=== PATIENT | male | born 1995 | race Native Hawaiian/Other Pacific Islander ===

== ENCOUNTER 2017-07-17 15:58 | Emergency (ER) | payer OTHER ==
[2017-07-17 16:08] VITALS: RESP 19; TEMP 98.2; O2SAT 98
[2017-07-17] MEDS ORDERED: Lidocaine 1% Inj (20ml) IJ STA (16:15)
--- NOTE | 2017-07-17 16:18 | ED PDOC ---
HPI: Wound Care - HPI Time Seen by Provider: 07/17/17 16:10 Chief Complaint (Nursing): Abnormal Skin Integrity Chief Complaint (Provider): right thumb laceration History Per: Patient Additional Complaint(s): 21 year old left hand dominant male presents with flap laceration to right thumb sustained earlier today with a doctor osteopathic. Patient went to urgent care and was told to come to ED as they could do the repair at urgent care. Tetanus booster was given at urgent care. Patient denies any numbness or tingling to affected area. PMD: none Past Medical History Reviewed: Historical Data, Nursing Documentation, Vital Signs Vital Signs: Last Vital Signs Temp 98.2 F 07/17/17 16:04 Pulse 113 H 07/17/17 16:04 Resp 19 07/17/17 16:04 BP 157/80 H 07/17/17 16:04 Pulse Ox 98 07/17/17 16:04 - Medical History PMH: No Chronic Diseases - Family History Family History: States: No Known Family Hx - Living Arrangements Living Arrangements: With Friends/Others - Social History Current smoker - smoking cessation education provided: No Alcohol: None Drugs: Denies - Immunization History Hx Tetanus Toxoid Vaccination: Yes - Home Medications Home Medications: Ambulatory Orders Medication Instructions Recorded Amoxicillin/Clavulanate [Augmentin 1 tab PO BID #14 tab 07/17/17 875 MG-125 MG] traMADol [Ultram] 50 mg PO TID PRN #15 tab 07/17/17 - Allergies Allergies/Adverse Reactions: Allergies Allergy/AdvReac Type Severity Reaction Status Date / Time aspirin Allergy RASH Verified 07/17/17 16:03 ibuprofen [From Advil] Allergy RASH Verified 07/17/17 16:03 Review of Systems ROS Statement: Except As Marked, All Systems Reviewed And Found Negative Musculoskeletal: Positive for: Other (right thumb laceration) Physical Exam - Reviewed Nursing Documentation Reviewed: Yes Vital Signs Reviewed: Yes - Physical Exam Appears: Positive for: Well, Non-toxic, No Acute Distress Skin: Negative for: Rash Eye Exam: Positive for: Normal appearance Cardiovascular/Chest: Positive for: Regular Rate, Rhythm Respiratory: Positive for: Normal Breath Sounds Extremity: Positive for: Other (4 cm U shaped flap laceration noted to dorsal aspect of right thumb. Full rom of digit, normal distal sensation, no active bleeding) Neurologic/Psych: Positive for: Alert, Oriented - ECG O2 Sat by Pulse Oximetry: 98 Pulse Ox Interpretation: Normal Procedure: Wound Repair - Time Performed Time Performed: 16:18 - Time Out Time Out: Side verified, Site verified, Patient ID confirmed - Procedure Procedure: Wound Repair: right thumb flap laceration - Consent Obtained Consent obtained: Verbal - Performed by Performed by: Mid-level Provider - Indications Indication(s):: Laceration - Location Location:: Right Finger:: Thumb Shape:: Other (U shaped flap) Dimensions Length cm: 4 - Anesthetic Technique Local/Regional Anesthetic:: Lidocaine 1% (digital block right humb) - Debris Debris:: None - Irrigated Irrigated with ml of normal saline: 50 - Complexity Complexity:: Simple (one layer) - Wound repair method Sutures:: # (15), Size (5-0), Type (nylon), Technique (interrupted) - Muscle repiar layer closed with Muscle repair layer closed with:: Wound well approximated, Dressing applied, Tetanus up to date - Complications Complications: none - Patient tolerated procedure Patient Tolerated Procedure:: Well Medical Decision Making Medical Decision Makin21 year old with right thumb laceration Plan: Lac repair Please see procedure note. Flap was realigned however patient made aware that flap may not be viable even after repair. Patient given detailed wound care instructions. Prescriptions given for Augmentin and tramadol. Disposition - Clinical Impression Clinical Impression: Finger laceration - Patient ED Disposition Is Patient to be Admitted: No Counseled Patient/Family Regarding: Diagnosis, Need For Followup, Rx Given - Disposition Referrals: Sunny Silver MD [Medical Doctor] - Disposition: Routine/Home Disposition Time: 17:10 Condition: STABLE Additional Instructions: Wash wound daily with soap and water. Apply thin film of Neosporin once a day only and keep wound covered. Rest the affected areas as much as possible. Take antibiotics as directed. Take regular Tylenol for mild pain, take prescription pain medication for more severe pain. Wound check 2-3 days. Suture removal 14 days. Follow up with hand specialist. Prescriptions: Amoxicillin/Clavulanate [Augmentin 875 MG-125 MG] 1 tab PO BID #14 tab traMADol [Ultram] 50 mg PO TID PRN #15 tab PRN Reason: Pain, Moderate (4-7) Instructions: Laceration Repair With Stitches (DC) Forms: [employer] (Amharic)
--- NOTE | 2017-07-17 16:25 | ED PDOC ---
Upper Extremity Pain/Injury Time Seen by Provider: 07/17/17 16:10 Chief Complaint (Nursing): Abnormal Skin Integrity Chief Complaint (Provider): Right thumb laceration History Per: Patient History/Exam Limitations: no limitations Onset/Duration Of Symptoms: Hrs Current Symptoms Are (Timing): Still Present Quality: "Pain" Past Medical History Reviewed: Historical Data, Nursing Documentation, Vital Signs Vital Signs: Last Vital Signs Temp 98.2 F 07/17/17 16:04 Pulse 113 H 07/17/17 16:04 Resp 19 07/17/17 16:04 BP 157/80 H 07/17/17 16:04 Pulse Ox 98 07/17/17 16:04 - Allergies Allergies/Adverse Reactions: Allergies Allergy/AdvReac Type Severity Reaction Status Date / Time aspirin Allergy RASH Verified 07/17/17 16:03 ibuprofen [From Advil] Allergy RASH Verified 07/17/17 16:03 - ECG O2 Sat by Pulse Oximetry: 98 (RA) Pulse Ox Interpretation: Normal Medical Decision Making Medical Decision Making: Initial Impression: Right thumb laceration\\ Initial Plan: --Reevaluation Scribe Attestation: Documented by Dre Aranda, acting as a scribe for Sarahi Alonso PA-C Provider Scribe Attestation: All medical record entries made by the Scribe were at my direction and personally dictated by me. I have reviewed the chart and agree that the record accurately reflects my personal performance of the history, physical exam, medical decision making, and the department course for this patient. I have also personally directed, reviewed, and agree with the discharge instructions and disposition. Disposition - Disposition Referrals: Provider CHAD, [Primary Care Provider] -
[2017-07-17] MEDS ORDERED: Amoxicillin-Clav 875-125 mg Tab PO STA (17:11)
[2017-07-17 17:30] VITALS: BP 134/76; PULSE 87
== END 2017-07-17 17:29 | disposition home or self-care (01) ==
LOC: SUPCPDRO 15:58 → H.ER 15:58
DX: S61.011A Laceration without foreign body of right thumb without damage to nail, initial encounter (principal); W26.0XXA Contact with knife, initial encounter; Y92.89 Other specified places as the place of occurrence of the external cause; Z88.6 Allergy status to analgesic agent